=== PATIENT | female | born 1975 | race Caucasian/White ===

== ENCOUNTER 2022-01-17 08:44 | Outpatient (CLI) | payer BC, OTHER | END 2022-01-17 08:45 | disposition home or self-care (01) | LOC: CSHMRI 08:44 | PROVIDERS: ATTEND Physician Assistant | DX: M54.41 Lumbago with sciatica, right side (principal); G89.29 Other chronic pain; M51.26 Other intervertebral disc displacement, lumbar region; M47.817 Spondylosis without myelopathy or radiculopathy, lumbosacral region | CPT/HCPCS: 72148 ==